=== PATIENT | female | born 1935 | race Caucasian/White ===

== ENCOUNTER → 2018-11-02 | Day surgery (SDC) | payer OTHER ==
[~2018-11-02] VITALS: Ht 160 cm; Wt 42.6 kg
[~2018-11-02] MED LIST: ASPI-404 PO; CAR3125T PO; FURO1TAB33 PO; LISI2.5T47 PO; POTA8TAB2 PO
== END | disposition home or self-care (01) ==
LOC: CATH 14:14
PROVIDERS: ATTEND Internal Medicine
DX: Z01.818 Encounter for other preprocedural examination (principal); R94.39 Abnormal result of other cardiovascular function study; Z98.890 Other specified postprocedural states
CPT/HCPCS: 93005